=== PATIENT | male | born 1955 | race Caucasian/White ===

== ENCOUNTER 2017-06-01 11:35 | Inpatient (IN) | payer MEDICAID ==
[~2017-06-01] VITALS: Ht 180.3 cm; Wt 93.0 kg
[~2017-06-01 11:35] MED LIST: BACI3.5O2 LEFTEYE; NO HOME MEDS; PRED20TA PO
[2017-06-01] MEDS ORDERED: Permethrin 1% 59ml topical rinse TP ONE ×2 (14:25→17:10)
[2017-06-01] MEDS ORDERED: Permethrin Cream 60gm TP ONE ×2 (14:25→17:10)
[2017-06-01] MEDS ORDERED: Ivermectin 3mg tablet PO STA ×2 (14:33→14:41)
[2017-06-01 14:49] LABS: BASOPHILS % (AUTO) 0.1 % (0-1); EOSINOPHILS # (AUTO) 0.1 X10'3 (0-0.9); EOSINOPHILS % (AUTO) 0.4 % (0-6); HEMATOCRIT 41.4 % (42.0-52.0); HEMOGLOBIN 13.9 g/dl (14.0-17.9); LYMPHOCYTES % (AUTO) 6.6 % (21-51); MEAN CORPUSCULAR HEMOGLOBIN 30.8 PG (27.0-31.0); MEAN CORPUSCULAR HGB CONC 33.5 % (33.0-36.5); MEAN CORPUSCULAR VOLUME 91.9 FL (78-98); MEAN PLATELET VOLUME 8.4 FL (7.4-10.4); MONOCYTES # (AUTO) 1.1 X10'3 (0-0.9); MONOCYTES % (AUTO) 7.3 % (2-12); NEUTROPHILS # (AUTO) 13.5 X10'3 (1.8-7.7); NEUTROPHILS % (AUTO) 85.6 % (42-75); PLATELET COUNT 236 X10'3 (140-440); RED CELL DISTRIBUTION WIDTH 14.2 % (11.5-14.5); WHITE BLOOD COUNT 15.7 X10'3 (4.5-11.0)
[2017-06-01 15:02] LABS: INR 1.1 INR; PARTIAL THROMBOPLASTIN TIME 34 SECONDS (22-32)
[2017-06-01 15:08] LABS: ALANINE AMINOTRANSFERASE 58 U/L (12-78); ALBUMIN 3.1 G/DL (3.4-5.0); ALBUMIN/GLOBULIN RATIO 0.6 (1.1-1.5); ALKALINE PHOSPHATASE 77 IU/L (46-116); ANION GAP 9 (8-16); ASPARTATE AMINO TRANSFERASE 60 U/L (10-37); BILIRUBIN,TOTAL 0.9 MG/DL (0.1-1.0); BLOOD UREA NITROGEN 28 MG/DL (7-18); CALCIUM 8.9 MG/DL (8.5-10.1); CHLORIDE 98 MMOL/L (99-107); GLUCOSE 112 MG/DL (70-104); POTASSIUM 3.9 MMOL/L (3.5-5.1); SODIUM 134 MMOL/L (135-145); TOTAL CARBON DIOXIDE 26.6 MMOL/L (24-32); TOTAL PROTEIN 8.1 G/DL (6.4-8.2); eGFR 51 ML/MIN
[2017-06-01] MEDS ORDERED: CefTRIAXone 2gm/D5W 50ml ADVTG 50 ML IV ONE (16:05)
[2017-06-01] MEDS ORDERED: metoclopramide 5 mg/ml inj IV PRN (16:35)
[2017-06-01] MEDS ORDERED: diphenhydrAMINE 50 mg/ml inj IV PRN (16:35)
[2017-06-01] MEDS ORDERED: acetaminophen 325mg tablet PO PRN (16:35)
[2017-06-01] MEDS ORDERED: ondansetron/PF 4mg/2ml inj IV PRN (16:35)
[2017-06-01] MEDS ORDERED: HYDROcodone/acetaminophen 10/325mg tab PO PRN (16:35)
[2017-06-01] MEDS ORDERED: mag hydrox/Alum hydrox/simeth 30ml oral suspension PO PRN (16:35)
[2017-06-01] MEDS ORDERED: acetaminophen 650mg rectal suppository RC PRN (16:35)
[2017-06-01] MEDS ORDERED: HYDROcodone/acetaminophen 5mg/325mg tablet PO PRN (16:35)
[2017-06-01] MEDS ORDERED: magnesium hydroxide 30ml (MOM) UD suspension PO PRN (16:35)
[2017-06-01] MEDS ORDERED: diphenhydrAMINE 25mg capsule PO PRN (16:35)
[2017-06-01] MEDS ORDERED: UNABLE TO OBTAIN (16:50)
[2017-06-01] MEDS: normal saline 1000ml 1,000 ML IV SCH (16:58)
[2017-06-01] MEDS ORDERED: piperacillin/tazo 3.375gm/50ml 50 ML IV SCH (17:16)
[2017-06-01 18:13] LABS: MAGNESIUM 2.2 MG/DL (1.5-2.4)
[2017-06-01 20:00] VITALS: BP 125/78
[2017-06-01] MEDS ORDERED: vancomycin/NS 1 GM ADD-VANTAGE 250 ML IV SCH (20:00)
[2017-06-01] MEDS: docusate sod 100mg capsule PO SCH (20:00)
[2017-06-01] MEDS ORDERED: temazepam 15mg capsule PO PRN (21:00)
[2017-06-02] VITALS: BP 95/58
[2017-06-02] MEDS: normal saline 1000ml 1,000 ML IV SCH ×3 (02:32→19:42)
[2017-06-02] MEDS ORDERED: vancomycin inj 1,250 MG in normal saline 250ml IV soln 250 ML IV SCH (04:00)
[2017-06-02] MEDS ORDERED: piperacillin/tazo 3.375gm/50ml 50 ML IV SCH (05:00)
[2017-06-02 06:07] LABS: BASOPHILS % (AUTO) 0.1 % (0-1); EOSINOPHILS # (AUTO) 0.1 X10'3 (0-0.9); EOSINOPHILS % (AUTO) 0.7 % (0-6); HEMATOCRIT 34.4 % (42.0-52.0); HEMOGLOBIN 11.8 g/dl (14.0-17.9); LYMPHOCYTES # (AUTO) 1.3 X10'3 (1.1-4.8); LYMPHOCYTES % (AUTO) 7.3 % (21-51); MEAN CORPUSCULAR HEMOGLOBIN 31.4 PG (27.0-31.0); MEAN CORPUSCULAR HGB CONC 34.2 % (33.0-36.5); MEAN CORPUSCULAR VOLUME 91.9 FL (78-98); MONOCYTES % (AUTO) 10.9 % (2-12); NEUTROPHILS # (AUTO) 14.8 X10'3 (1.8-7.7); PLATELET COUNT 207 X10'3 (140-440); RED BLOOD COUNT 3.74 X10'6 (4.70-6.10); RED CELL DISTRIBUTION WIDTH 14.3 % (11.5-14.5); WHITE BLOOD COUNT 18.3 X10'3 (4.5-11.0)
[2017-06-02 06:09] LABS: ALANINE AMINOTRANSFERASE 59 U/L (12-78); ALBUMIN 2.3 G/DL (3.4-5.0); ALBUMIN/GLOBULIN RATIO 0.5 (1.1-1.5); ALKALINE PHOSPHATASE 73 IU/L (46-116); ANION GAP 8 (8-16); ASPARTATE AMINO TRANSFERASE 60 U/L (10-37); BILIRUBIN,TOTAL 0.8 MG/DL (0.1-1.0); BLOOD UREA NITROGEN 22 MG/DL (7-18); BUN/CREATININE RATIO 21.6 (5.4-32.0); CALCIUM 8.3 MG/DL (8.5-10.1); CHLORIDE 103 MMOL/L (99-107); CREATININE 1.02 MG/DL (0.60-1.10); GLUCOSE 109 MG/DL (70-104); POTASSIUM 3.6 MMOL/L (3.5-5.1); SODIUM 134 MMOL/L (135-145); TOTAL PROTEIN 6.6 G/DL (6.4-8.2); eGFR 74 ML/MIN
[2017-06-02 07:00] VITALS: BP 98/72
[2017-06-02] MEDS: docusate sod 100mg capsule PO SCH ×2 (07:18→19:41)
[2017-06-02] MEDS: pantoprazole 40mg Tablet.DR PO SCH (07:18)
[2017-06-02] MEDS: heparin, porcine 5000 units/ml vial SQ SCH ×3 (07:18→15:39)
[2017-06-02] MEDS ORDERED: pneumococcal 23-VAL P-sac vacc 25 mcg/0.5ml vial IMVAC ONE (09:00)
[2017-06-02 11:34] VITALS: BP 137/69
[2017-06-02] MEDS: vancomycin/NS 1 GM ADD-VANTAGE 250 ML IV SCH ×2 (12:24→19:41)
[2017-06-02] MEDS: piperacillin/tazo 3.375gm/50ml 50 ML IV SCH ×2 (15:28→23:53)
[2017-06-02] MEDS: mineral oil/petrolatum, white cream 113gm jar TP SCH (19:41)
[2017-06-02] MEDS: nicotine 21mg patch - 24 hr TD SCH (19:41)
[2017-06-02 20:00] VITALS: BP 128/68
[2017-06-03] VITALS: BP 110/65
[2017-06-03] MEDS ORDERED: VANCOMYCIN LEVEL IV ONE (03:30)
[2017-06-03] MEDS: vancomycin/NS 1 GM ADD-VANTAGE 250 ML IV SCH ×3 (04:15→21:05)
[2017-06-03 06:06] LABS: BASOPHILS % (AUTO) 0.2 % (0-1); EOSINOPHILS # (AUTO) 0.5 X10'3 (0-0.9); EOSINOPHILS % (AUTO) 3.1 % (0-6); HEMATOCRIT 33.1 % (42.0-52.0); HEMOGLOBIN 11.4 g/dl (14.0-17.9); LYMPHOCYTES # (AUTO) 1.7 X10'3 (1.1-4.8); LYMPHOCYTES % (AUTO) 11.3 % (21-51); MEAN CORPUSCULAR HEMOGLOBIN 31.4 PG (27.0-31.0); MEAN CORPUSCULAR HGB CONC 34.4 % (33.0-36.5); MEAN CORPUSCULAR VOLUME 91.4 FL (78-98); MEAN PLATELET VOLUME 7.9 FL (7.4-10.4); MONOCYTES # (AUTO) 1.1 X10'3 (0-0.9); MONOCYTES % (AUTO) 7.2 % (2-12); NEUTROPHILS # (AUTO) 11.7 X10'3 (1.8-7.7); NEUTROPHILS % (AUTO) 78.2 % (42-75); PLATELET COUNT 259 X10'3 (140-440); RED BLOOD COUNT 3.62 X10'6 (4.70-6.10); RED CELL DISTRIBUTION WIDTH 14.1 % (11.5-14.5); WHITE BLOOD COUNT 14.9 X10'3 (4.5-11.0)
[2017-06-03 06:22] LABS: ALANINE AMINOTRANSFERASE 61 U/L (12-78); ALBUMIN 2.1 G/DL (3.4-5.0); ALBUMIN/GLOBULIN RATIO 0.5 (1.1-1.5); ALKALINE PHOSPHATASE 83 IU/L (46-116); ANION GAP 9 (8-16); ASPARTATE AMINO TRANSFERASE 57 U/L (10-37); BILIRUBIN,TOTAL 0.6 MG/DL (0.1-1.0); BLOOD UREA NITROGEN 17 MG/DL (7-18); BUN/CREATININE RATIO 18.5 (5.4-32.0); CALCIUM 8.3 MG/DL (8.5-10.1); CHLORIDE 105 MMOL/L (99-107); CREATININE 0.92 MG/DL (0.60-1.10); GLUCOSE 93 MG/DL (70-104); POTASSIUM 3.6 MMOL/L (3.5-5.1); SODIUM 138 MMOL/L (135-145); TOTAL PROTEIN 6.5 G/DL (6.4-8.2); eGFR 83 ML/MIN
[2017-06-03 07:20] VITALS: BP 130/68
[2017-06-03] MEDS: docusate sod 100mg capsule PO SCH ×2 (07:35→19:32)
[2017-06-03] MEDS: LACTOBACILLUS RHAMNOSUS GG 15 billion unit sprinkle caps PO SCH (07:36)
[2017-06-03] MEDS: mineral oil/petrolatum, white cream 113gm jar TP SCH ×2 (07:36→19:33)
[2017-06-03] MEDS: nicotine 21mg patch - 24 hr TD SCH (07:36)
[2017-06-03] MEDS: piperacillin/tazo 3.375gm/50ml 50 ML IV SCH ×2 (07:38→15:04)
[2017-06-03] MEDS: heparin, porcine 5000 units/ml vial SQ SCH ×3 (07:40→16:24)
[2017-06-03] MEDS: pantoprazole 40mg Tablet.DR PO SCH (07:41)
[2017-06-03] MEDS: normal saline 1000ml 1,000 ML IV SCH ×2 (08:32→19:32)
[2017-06-03 11:08] VITALS: BP 134/66
[2017-06-03] MEDS ORDERED: VANCOMYCIN LEVEL IV NR (11:30)
[2017-06-03] MEDS: CefTRIAXone 2gm/D5W 50ml ADVTG 50 ML IV SCH (19:32)
[2017-06-03 20:00] VITALS: BP 132/68
[2017-06-04] VITALS: BP 120/76
[2017-06-04] MEDS: heparin, porcine 5000 units/ml vial SQ SCH ×4 (01:27→23:42)
[2017-06-04] MEDS: normal saline 1000ml 1,000 ML IV SCH ×2 (04:32→15:25)
[2017-06-04 04:38] LABS: BASOPHILS # (AUTO) 0.1 X10'3 (0-0.2); BASOPHILS % (AUTO) 0.8 % (0-1); EOSINOPHILS # (AUTO) 0.6 X10'3 (0-0.9); EOSINOPHILS % (AUTO) 4.8 % (0-6); HEMATOCRIT 32.1 % (42.0-52.0); HEMOGLOBIN 11.1 g/dl (14.0-17.9); LYMPHOCYTES # (AUTO) 1.7 X10'3 (1.1-4.8); LYMPHOCYTES % (AUTO) 13.9 % (21-51); MEAN CORPUSCULAR HEMOGLOBIN 31.3 PG (27.0-31.0); MEAN CORPUSCULAR HGB CONC 34.5 % (33.0-36.5); MEAN CORPUSCULAR VOLUME 90.9 FL (78-98); MEAN PLATELET VOLUME 7.5 FL (7.4-10.4); MONOCYTES # (AUTO) 0.7 X10'3 (0-0.9); NEUTROPHILS # (AUTO) 9.2 X10'3 (1.8-7.7); NEUTROPHILS % (AUTO) 74.5 % (42-75); PLATELET COUNT 328 X10'3 (140-440); RED BLOOD COUNT 3.53 X10'6 (4.70-6.10); RED CELL DISTRIBUTION WIDTH 14.1 % (11.5-14.5); WHITE BLOOD COUNT 12.4 X10'3 (4.5-11.0)
[2017-06-04] MEDS: vancomycin/NS 1 GM ADD-VANTAGE 250 ML IV SCH ×4 (04:40→23:42)
[2017-06-04 04:55] LABS: ALANINE AMINOTRANSFERASE 78 U/L (12-78); ALBUMIN/GLOBULIN RATIO 0.5 (1.1-1.5); ALKALINE PHOSPHATASE 83 IU/L (46-116); ANION GAP 8 (8-16); ASPARTATE AMINO TRANSFERASE 68 U/L (10-37); BILIRUBIN,TOTAL 0.4 MG/DL (0.1-1.0); BLOOD UREA NITROGEN 10 MG/DL (7-18); BUN/CREATININE RATIO 12.3 (5.4-32.0); CALCIUM 8.6 MG/DL (8.5-10.1); CHLORIDE 106 MMOL/L (99-107); CREATININE 0.81 MG/DL (0.60-1.10); GLUCOSE 101 MG/DL (70-104); POTASSIUM 3.6 MMOL/L (3.5-5.1); SODIUM 139 MMOL/L (135-145); TOTAL CARBON DIOXIDE 25.2 MMOL/L (24-32); TOTAL PROTEIN 6.4 G/DL (6.4-8.2); eGFR > 90 ML/MIN
[2017-06-04 07:25] VITALS: BP 138/77
[2017-06-04] MEDS: LACTOBACILLUS RHAMNOSUS GG 15 billion unit sprinkle caps PO SCH (07:47)
[2017-06-04] MEDS: pantoprazole 40mg Tablet.DR PO SCH (07:47)
[2017-06-04] MEDS: CefTRIAXone 2gm/D5W 50ml ADVTG 50 ML IV SCH (07:47)
[2017-06-04] MEDS: docusate sod 100mg capsule PO SCH ×2 (07:48→20:00)
[2017-06-04] MEDS: mineral oil/petrolatum, white cream 113gm jar TP SCH ×2 (07:49→20:00)
[2017-06-04] MEDS: nicotine 21mg patch - 24 hr TD SCH (07:49)
[2017-06-04 12:23] VITALS: BP 132/74
[2017-06-04] MEDS ORDERED: DOXY-257 PO (12:32)
[2017-06-04] MEDS ORDERED: AMOX-580 PO (12:32)
[2017-06-04 18:45] VITALS: BP 115/75
[2017-06-04 23:00] VITALS: BP 125/75
[2017-06-05] MEDS: normal saline 1000ml 1,000 ML IV SCH ×2 (00:32→13:22)
[2017-06-05 06:06] LABS: BASOPHILS # (AUTO) 0.1 X10'3 (0-0.2); BASOPHILS % (AUTO) 0.5 % (0-1); EOSINOPHILS # (AUTO) 0.7 X10'3 (0-0.9); EOSINOPHILS % (AUTO) 5.5 % (0-6); HEMATOCRIT 32.2 % (42.0-52.0); HEMOGLOBIN 10.8 g/dl (14.0-17.9); LYMPHOCYTES # (AUTO) 2.1 X10'3 (1.1-4.8); LYMPHOCYTES % (AUTO) 17.4 % (21-51); MEAN CORPUSCULAR HEMOGLOBIN 30.8 PG (27.0-31.0); MEAN CORPUSCULAR HGB CONC 33.6 % (33.0-36.5); MEAN CORPUSCULAR VOLUME 91.7 FL (78-98); MEAN PLATELET VOLUME 7.5 FL (7.4-10.4); MONOCYTES # (AUTO) 0.9 X10'3 (0-0.9); MONOCYTES % (AUTO) 7.3 % (2-12); NEUTROPHILS # (AUTO) 8.3 X10'3 (1.8-7.7); NEUTROPHILS % (AUTO) 69.3 % (42-75); PLATELET COUNT 428 X10'3 (140-440); RED BLOOD COUNT 3.51 X10'6 (4.70-6.10); RED CELL DISTRIBUTION WIDTH 13.8 % (11.5-14.5)
[2017-06-05 06:41] LABS: ALANINE AMINOTRANSFERASE 82 U/L (12-78); ALBUMIN/GLOBULIN RATIO 0.5 (1.1-1.5); ALKALINE PHOSPHATASE 83 IU/L (46-116); ANION GAP 5 (8-16); ASPARTATE AMINO TRANSFERASE 65 U/L (10-37); BILIRUBIN,TOTAL 0.5 MG/DL (0.1-1.0); BLOOD UREA NITROGEN 8 MG/DL (7-18); BUN/CREATININE RATIO 8.8 (5.4-32.0); CALCIUM 8.5 MG/DL (8.5-10.1); CHLORIDE 105 MMOL/L (99-107); CREATININE 0.91 MG/DL (0.60-1.10); GLUCOSE 105 MG/DL (70-104); POTASSIUM 3.8 MMOL/L (3.5-5.1); SODIUM 140 MMOL/L (135-145); TOTAL CARBON DIOXIDE 29.8 MMOL/L (24-32); TOTAL PROTEIN 6.3 G/DL (6.4-8.2); eGFR 84 ML/MIN
[2017-06-05] MEDS: pantoprazole 40mg Tablet.DR PO SCH (07:30)
[2017-06-05 08:00] VITALS: BP 134/79
[2017-06-05] MEDS: nicotine 21mg patch - 24 hr TD SCH (08:00)
[2017-06-05] MEDS: vancomycin/NS 1 GM ADD-VANTAGE 250 ML IV SCH ×2 (08:00→16:23)
[2017-06-05] MEDS: docusate sod 100mg capsule PO SCH ×2 (08:00→20:00)
[2017-06-05] MEDS: heparin, porcine 5000 units/ml vial SQ SCH ×2 (08:00→16:00)
[2017-06-05] MEDS: LACTOBACILLUS RHAMNOSUS GG 15 billion unit sprinkle caps PO SCH (08:31)
[2017-06-05] MEDS: CefTRIAXone 2gm/D5W 50ml ADVTG 50 ML IV SCH (08:32)
[2017-06-05] MEDS: mineral oil/petrolatum, white cream 113gm jar TP SCH ×2 (08:40→21:01)
[2017-06-05 12:00] VITALS: BP 137/74
[2017-06-05] MEDS: doxycycline hyclate 100mg tablet.DR PO SCH (18:02)
[2017-06-05] MEDS: amox tr/potassium clavulanate 875/125mg TAB PO SCH (18:02)
[2017-06-05 19:20] VITALS: BP 139/73
[2017-06-05 23:00] VITALS: BP 139/74
[2017-06-06 06:30] LABS: BASOPHILS # (AUTO) 0.1 X10'3 (0-0.2); BASOPHILS % (AUTO) 0.6 % (0-1); EOSINOPHILS # (AUTO) 0.7 X10'3 (0-0.9); EOSINOPHILS % (AUTO) 5.4 % (0-6); HEMATOCRIT 33.8 % (42.0-52.0); HEMOGLOBIN 11.4 g/dl (14.0-17.9); LYMPHOCYTES # (AUTO) 1.7 X10'3 (1.1-4.8); LYMPHOCYTES % (AUTO) 13.5 % (21-51); MEAN CORPUSCULAR HGB CONC 33.8 % (33.0-36.5); MEAN CORPUSCULAR VOLUME 91.8 FL (78-98); MEAN PLATELET VOLUME 7.4 FL (7.4-10.4); MONOCYTES # (AUTO) 0.7 X10'3 (0-0.9); MONOCYTES % (AUTO) 5.8 % (2-12); NEUTROPHILS # (AUTO) 9.4 X10'3 (1.8-7.7); NEUTROPHILS % (AUTO) 74.7 % (42-75); PLATELET COUNT 510 X10'3 (140-440); RED BLOOD COUNT 3.68 X10'6 (4.70-6.10); RED CELL DISTRIBUTION WIDTH 13.7 % (11.5-14.5); WHITE BLOOD COUNT 12.6 X10'3 (4.5-11.0)
[2017-06-06 06:49] LABS: ALANINE AMINOTRANSFERASE 105 U/L (12-78); ALBUMIN/GLOBULIN RATIO 0.4 (1.1-1.5); ALKALINE PHOSPHATASE 91 IU/L (46-116); ANION GAP 6 (8-16); ASPARTATE AMINO TRANSFERASE 85 U/L (10-37); BILIRUBIN,TOTAL 0.3 MG/DL (0.1-1.0); BLOOD UREA NITROGEN 8 MG/DL (7-18); BUN/CREATININE RATIO 9.5 (5.4-32.0); CALCIUM 8.7 MG/DL (8.5-10.1); CHLORIDE 106 MMOL/L (99-107); CREATININE 0.84 MG/DL (0.60-1.10); GLUCOSE 101 MG/DL (70-104); POTASSIUM 3.9 MMOL/L (3.5-5.1); SODIUM 140 MMOL/L (135-145); TOTAL CARBON DIOXIDE 28.5 MMOL/L (24-32); TOTAL PROTEIN 6.5 G/DL (6.4-8.2); eGFR > 90 ML/MIN
[2017-06-06 07:18] VITALS: BP 123/68
[2017-06-06] MEDS: pantoprazole 40mg Tablet.DR PO SCH (07:30)
[2017-06-06] MEDS: nicotine 21mg patch - 24 hr TD SCH (08:00)
[2017-06-06] MEDS: heparin, porcine 5000 units/ml vial SQ SCH ×2 (08:00)
[2017-06-06] MEDS: docusate sod 100mg capsule PO SCH (08:00)
[2017-06-06] MEDS: doxycycline hyclate 100mg tablet.DR PO SCH (08:34)
[2017-06-06] MEDS: mineral oil/petrolatum, white cream 113gm jar TP SCH (08:34)
[2017-06-06] MEDS: amox tr/potassium clavulanate 875/125mg TAB PO SCH (08:35)
[2017-06-06] MEDS: LACTOBACILLUS RHAMNOSUS GG 15 billion unit sprinkle caps PO SCH (08:35)
== END 2017-06-06 14:15 | disposition home or self-care (01) | DRG 720 ==
LOC: ER 11:36 → ED HOLD 16:36 → CMPBEDREQ 19:53 → MED 3N 20:49
PROVIDERS: ADMIT Family Medicine; ATTEND Family Medicine
DX: A41.9 Sepsis, unspecified organism (principal); N17.0 Acute kidney failure with tubular necrosis; E87.1 Hypo-osmolality and hyponatremia; F20.9 Schizophrenia, unspecified; B85.1 Pediculosis due to Pediculus humanus corporis; L03.115 Cellulitis of right lower limb; E86.0 Dehydration; L23.9 Allergic contact dermatitis, unspecified cause; F17.210 Nicotine dependence, cigarettes, uncomplicated; Z60.2 Problems related to living alone; Z59.0 Homelessness; Z79.899 Other long term (current) drug therapy; Z79.01 Long term (current) use of anticoagulants; Z56.0 Unemployment, unspecified
CPT/HCPCS: 36415; 80053; 80202; 83605; 83735; 83880; 85025; 85610; 85730; 87040; 87070; 93971; 99285; A6212; A6449; J0696; J1644; J2543; J3370; J7030

== ENCOUNTER 2019-06-18 08:23 | Emergency (ER) | payer MEDICAID, MEDICARE ==
[~2019-06-18] VITALS: Ht 180.3 cm; Wt 100.0 kg
[~2019-06-18 08:23] MED LIST changes: -BACI3.5O2 LEFTEYE; +DOXY-327 PO; -NO HOME MEDS; -PRED20TA PO
[2019-06-18] MEDS ORDERED: ondansetron 4mg rapidly disintigrating tab PO ONE (09:05)
[2019-06-18] MEDS ORDERED: HYDROcodone/acetaminophen 5mg/325mg tablet PO ONE (09:05)
[2019-06-18] MEDS ORDERED: IBUP-1984 PO (09:13)
[2019-06-18 09:23] VITALS: BP 127/72
--- NOTE | 2019-06-18 10:08 | NUR ---
Pt asleep. Awakened to dc.
== END 2019-06-18 10:13 | disposition home or self-care (01) ==
LOC: ER 08:24
DX: M25.551 Pain in right hip (principal); G89.29 Other chronic pain; Z59.0 Homelessness; Z56.0 Unemployment, unspecified
CPT/HCPCS: 99284

== ENCOUNTER 2019-07-02 23:00 | Emergency (ER) | payer MEDICARE ==
[~2019-07-02] VITALS: Ht 172.7 cm; Wt 81.8 kg
[2019-07-03] MEDS ORDERED: acetaminophen 325mg tablet PO ONE (01:05)
[2019-07-03 01:50] VITALS: BP 109/79
[2019-07-04] MEDS ORDERED: NAPR-56 PO (02:05)
== END 2019-07-03 01:59 | disposition home or self-care (01) ==
LOC: ER 23:01
DX: G89.29 Other chronic pain (principal); M25.552 Pain in left hip; Z59.0 Homelessness; Z56.0 Unemployment, unspecified
CPT/HCPCS: 99282

== ENCOUNTER 2019-07-03 23:42 | Emergency (ER) | payer MEDICARE ==
[~2019-07-03] VITALS: Ht 180.3 cm; Wt 97.7 kg
[2019-07-03 23:48] VITALS: BP 136/100
[2019-07-04] MEDS ORDERED: ketorolac trometh. 30mg/ml inj. IM ONE (01:15)
[2019-07-04] MEDS ORDERED: NAPR-56 PO (02:05)
== END 2019-07-04 02:41 | disposition home or self-care (01) ==
LOC: ER 23:43
DX: M25.551 Pain in right hip (principal); G89.29 Other chronic pain; F20.9 Schizophrenia, unspecified; Z98.890 Other specified postprocedural states; Z60.2 Problems related to living alone; Z59.0 Homelessness; Z56.0 Unemployment, unspecified; Z79.899 Other long term (current) drug therapy
CPT/HCPCS: 73502; 96372; 99283; J1885

== ENCOUNTER 2019-07-16 02:50 | Emergency (ER) | payer MEDICARE ==
[~2019-07-16] VITALS: Ht 177.8 cm; Wt 63.6 kg
[~2019-07-16 02:50] MED LIST changes: +NAPR-56 PO
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
--- NOTE | 2019-07-16 03:02 | NUR ---
PT WAS PROMPTLY ESCORTED OUT OF ED BEFORE ANY ICT SUPPORT ENGINEER COULD OCCUR. PT WAS TOO AGGRESSIVE AND UNCOOPERATIVE FOR SAFE ICT SUPPORT ENGINEER.
[2019-07-16] MEDS ORDERED: NO HOME MEDS (13:45)
[2019-07-16] MEDS ORDERED: SULF1TAB49 PO (17:34)
[2019-07-18] MEDS ORDERED: NO HOME MEDS (16:06)
[2019-07-20] MEDS ORDERED: OLAN2.5T3 PO (11:16)
[2019-07-20] MEDS ORDERED: CEPH500C5 PO (11:16)
== END 2019-07-16 03:04 | disposition home or self-care (01) ==
LOC: ER 02:51
DX: G89.29 Other chronic pain (principal); F20.9 Schizophrenia, unspecified; F17.210 Nicotine dependence, cigarettes, uncomplicated; Z76.5 Malingerer [conscious simulation]; Z59.0 Homelessness; Z72.89 Other problems related to lifestyle; Z56.0 Unemployment, unspecified; Z79.899 Other long term (current) drug therapy
CPT/HCPCS: 99283

== ENCOUNTER 2019-07-16 06:30 | Inpatient (IN) | payer MEDICARE ==
[~2019-07-16] VITALS: Ht 180.3 cm; Wt 93.2 kg
[2019-07-16] MEDS ORDERED: CefTRIAXone 2gm/D5W 50ml 50 ML IV ONE (06:55)
[2019-07-16] MEDS ORDERED: vancomycin/NS 1 GM ADD-VANTAGE 250 ML IV ONE (06:55)
[2019-07-16 07:39] LABS: BASOPHILS # (AUTO) 0.1 X10'3 (0-0.2); BASOPHILS % (AUTO) 1.1 % (0-1); EOSINOPHILS # (AUTO) 0.2 X10'3 (0-0.9); EOSINOPHILS % (AUTO) 1.7 % (0-6); HEMATOCRIT 38.8 % (42.0-52.0); HEMOGLOBIN 12.9 g/dl (14.0-17.9); LYMPHOCYTES # (AUTO) 1.7 X10'3 (1.1-4.8); LYMPHOCYTES % (AUTO) 13.6 % (21-51); MEAN CORPUSCULAR HEMOGLOBIN 30.1 PG (27.0-31.0); MEAN CORPUSCULAR HGB CONC 33.2 g/dL (33.0-36.5); MEAN CORPUSCULAR VOLUME 90.6 FL (78-98); MEAN PLATELET VOLUME 6.6 FL (7.4-10.4); MONOCYTES # (AUTO) 0.6 X10'3 (0-0.9); MONOCYTES % (AUTO) 4.6 % (2-12); PLATELET COUNT 739 X10'3 (140-440); RED BLOOD COUNT 4.28 X10'6 (4.70-6.10); RED CELL DISTRIBUTION WIDTH 13.6 % (11.5-14.5); WHITE BLOOD COUNT 12.7 X10'3 (4.5-11.0)
[2019-07-16 07:46] LABS: PARTIAL THROMBOPLASTIN TIME 29 SECONDS (22-32)
[2019-07-16 07:58] LABS: ALANINE AMINOTRANSFERASE 70 U/L (12-78); ALBUMIN 3.2 G/DL (3.4-5.0); ALBUMIN/GLOBULIN RATIO 0.5 (1.1-1.5); ALKALINE PHOSPHATASE 69 IU/L (46-116); ANION GAP 9 (8-16); ASPARTATE AMINO TRANSFERASE 47 U/L (10-37); BILIRUBIN,TOTAL 0.3 MG/DL (0.1-1.0); BLOOD UREA NITROGEN 32 MG/DL (7-18); BUN/CREATININE RATIO 24.1 (5.4-32.0); CALCIUM 9.7 MG/DL (8.5-10.1); CHLORIDE 101 MMOL/L (99-107); CREATININE 1.33 MG/DL (0.60-1.10); GLUCOSE 90 MG/DL (70-104); MAGNESIUM 2.2 MG/DL (1.5-2.4); POTASSIUM 4.5 MMOL/L (3.5-5.1); SODIUM 136 MMOL/L (135-145); TOTAL CARBON DIOXIDE 26.5 MMOL/L (24-32); TOTAL PROTEIN 9.3 G/DL (6.4-8.2); eGFR 54 ML/MIN
[2019-07-16 08:07] LABS: C-REACTIVE PROTEIN 1.47 MG/DL (0.0-0.5); ETHANOL < 0.010 GM/DL (0.0-0.010)
[2019-07-16 11:47] LABS: URINE AMPHETAMINE SCREEN NEGATIVE (Neg); URINE BARBITUATE SCREEN NEGATIVE (Neg); URINE BENZODIAZEPINES SCREEN NEGATIVE (Neg); URINE CANNABINOID SCREEN POSITIVE (Neg); URINE COCAINE SCREEN NEGATIVE (Neg); URINE METHADONE SCREEN NEGATIVE (Neg); URINE OPIATE SCREEN POSITIVE (Neg); URINE PHENCYCLIDINE SCREEN NEGATIVE (Neg)
[2019-07-16 11:55] LABS: CLARITY,URINE CLEAR (Clear); COLOR,URINE YELLOW (Yellow); GLUCOSE, URINE NEGATIVE (Neg); KETONES,URINE NEGATIVE (Neg); LEUKOCYTE ESTERASE ,URINE NEGATIVE (Neg); NITRITES, URINE NEGATIVE (Neg); OCCULT BLOOD,URINE NEGATIVE (Neg); PH,URINE 5.5 (4.8-8.0); PROTEIN,URINE NEGATIVE (Neg); UROBILINOGEN,URINE 0.2 E.U/dL (0.2-1.0)
[2019-07-16 12:02] LABS: UA COLLECTION TYPE URINAL
[2019-07-16] MEDS ORDERED: normal saline 1000ml 1,000 ML IV SCH (12:32)
[2019-07-16] MEDS ORDERED: morphine 2 MG/ML inj. syringe IV PRN ×2 (12:35)
[2019-07-16] MEDS ORDERED: ondansetron/PF 4mg/2ml inj IV PRN (12:35)
[2019-07-16] MEDS ORDERED: acetaminophen 325mg tablet PO PRN (12:35)
[2019-07-16] MEDS ORDERED: mag hydrox/Alum hydrox/simeth 30ml oral suspension PO PRN (12:35)
[2019-07-16] MEDS ORDERED: magnesium hydroxide 30ml (MOM) UD suspension PO PRN (12:35)
[2019-07-16] MEDS ORDERED: NO HOME MEDS (13:45)
[2019-07-16 15:40] VITALS: BP 100/63
[2019-07-16] MEDS ORDERED: piperacillin/tazo 4.5gm/100ml 100 ML IV SCH (16:00)
--- NOTE | 2019-07-16 17:20 | NUR ---
PT. WAS YELLING AT ME AND PULLED OUT HIS IV AND TRIED TO HIT ME IN THE PROCESS. PT. STATED HE WILL LEAVE AMA, HOSPITALIST NOTIFED AND ER MD CLEARED HIM TO LEAVE AMA.
[2019-07-16] MEDS ORDERED: SULF1TAB49 PO (17:34)
[2019-07-16] MEDS ORDERED: VANCOmycin 1250MG/NS 250ml Bag 250 ML IV SCH (20:00)
[2019-07-16] MEDS ORDERED: heparin, porcine 5000 units/ml vial SQ SCH (20:00)
[2019-07-18] MEDS ORDERED: VANCOMYCIN LEVEL IV ONE (07:30)
[2019-07-18] MEDS ORDERED: NO HOME MEDS (16:06)
[2019-07-20] MEDS ORDERED: CEPH500C5 PO (11:16)
[2019-07-20] MEDS ORDERED: OLAN2.5T3 PO (11:16)
== END 2019-07-16 17:36 | disposition left against medical advice (07) | DRG 603 ==
LOC: ER 06:30 → ED HOLD 12:32
PROVIDERS: ADMIT Family Medicine; ATTEND Family Medicine
DX: L03.115 Cellulitis of right lower limb (principal); Z60.2 Problems related to living alone; F17.210 Nicotine dependence, cigarettes, uncomplicated; F12.10 Cannabis abuse, uncomplicated; F14.10 Cocaine abuse, uncomplicated; Z53.29 Procedure and treatment not carried out because of patient's decision for other reasons; F20.9 Schizophrenia, unspecified; G89.29 Other chronic pain; Z59.0 Homelessness
CPT/HCPCS: 36415; 71045; 80053; 80305; 80320; 81003; 83605; 83735; 84145; 85025; 85610; 85730; 86140; 87040; 93005; 93971; G0378; J0696; J2543; J3370; J7030

== ENCOUNTER 2019-07-16 23:14 | Emergency (ER) | payer MEDICARE ==
[~2019-07-16] VITALS: Ht 180.3 cm; Wt 93.0 kg
[~2019-07-16 23:14] MED LIST changes: +NO HOME MEDS; +SULF1TAB49 PO
--- NOTE | 2019-07-17 01:50 | NUR ---
Patient resting calmly on gurney
[2019-07-17 03:00] VITALS: BP 114/66
[2019-07-18] MEDS ORDERED: NO HOME MEDS (16:06)
[2019-07-20] MEDS ORDERED: CEPH500C5 PO (11:16)
[2019-07-20] MEDS ORDERED: OLAN2.5T3 PO (11:16)
== END 2019-07-17 02:50 | disposition home or self-care (01) ==
LOC: ER 23:15
DX: L03.115 Cellulitis of right lower limb (principal); G89.29 Other chronic pain; F20.9 Schizophrenia, unspecified; F12.90 Cannabis use, unspecified, uncomplicated; Z59.0 Homelessness; Z72.89 Other problems related to lifestyle; Z56.0 Unemployment, unspecified
CPT/HCPCS: 99284

== ENCOUNTER → 2019-07-21 | Emergency (ER) | payer MEDICARE, OTHER ==
[~2019-07-21] MED LIST changes: +CEPH500C5 PO; -DOXY-327 PO; -NAPR-56 PO; -NO HOME MEDS; +OLAN2.5T3 PO; -SULF1TAB49 PO
== END | disposition home or self-care (01) ==
LOC: ER 00:12
DX: L03.115 Cellulitis of right lower limb (principal); G89.29 Other chronic pain; F20.9 Schizophrenia, unspecified; F12.90 Cannabis use, unspecified, uncomplicated; Z72.89 Other problems related to lifestyle; Z56.0 Unemployment, unspecified; Z79.899 Other long term (current) drug therapy
CPT/HCPCS: 99283

== ENCOUNTER 2019-07-29 22:02 | Emergency (ER) | payer MEDICARE, OTHER ==
[~2019-07-29] VITALS: Ht 180.3 cm; Wt 97.0 kg
[2019-07-29 22:04] VITALS: BP 121/75
[2019-07-29] MEDS ORDERED: ketorolac trometh inj. 60 MG/2 ML VIAL IM ONE (22:50)
== END 2019-07-29 23:13 | disposition home or self-care (01) ==
LOC: ER 22:03
DX: M54.6 Pain in thoracic spine (principal); G89.29 Other chronic pain; F12.90 Cannabis use, unspecified, uncomplicated; F20.9 Schizophrenia, unspecified; Z72.89 Other problems related to lifestyle; Z56.0 Unemployment, unspecified; Z79.2 Long term (current) use of antibiotics; Z79.899 Other long term (current) drug therapy; Z60.2 Problems related to living alone
CPT/HCPCS: 96372; 99283; J1885

== ENCOUNTER 2019-07-31 15:23 | Emergency (ER) | payer MEDICARE ==
[~2019-07-31] VITALS: Ht 170.2 cm; Wt 68.0 kg
[2019-07-31 16:15] LABS: BASOPHILS % (AUTO) 0.6 % (0-1); EOSINOPHILS # (AUTO) 0.3 X10'3 (0-0.9); EOSINOPHILS % (AUTO) 4.4 % (0-6); HEMATOCRIT 26.8 % (42.0-52.0); HEMOGLOBIN 9.2 g/dl (14.0-17.9); LYMPHOCYTES # (AUTO) 1.6 X10'3 (1.1-4.8); LYMPHOCYTES % (AUTO) 26.3 % (21-51); MEAN CORPUSCULAR HEMOGLOBIN 30.9 PG (27.0-31.0); MEAN CORPUSCULAR HGB CONC 34.2 g/dL (33.0-36.5); MEAN CORPUSCULAR VOLUME 90.2 FL (78-98); MEAN PLATELET VOLUME 6.5 FL (7.4-10.4); MONOCYTES # (AUTO) 0.5 X10'3 (0-0.9); MONOCYTES % (AUTO) 7.8 % (2-12); NEUTROPHILS # (AUTO) 3.8 X10'3 (1.8-7.7); NEUTROPHILS % (AUTO) 60.9 % (42-75); PLATELET COUNT 369 X10'3 (140-440); RED BLOOD COUNT 2.97 X10'6 (4.70-6.10); RED CELL DISTRIBUTION WIDTH 14.2 % (11.5-14.5); WHITE BLOOD COUNT 6.2 X10'3 (4.5-11.0)
[2019-07-31 16:40] LABS: ALANINE AMINOTRANSFERASE 31 U/L (12-78); ALBUMIN 2.5 G/DL (3.4-5.0); ALBUMIN/GLOBULIN RATIO 0.7 (1.1-1.5); ALKALINE PHOSPHATASE 63 IU/L (46-116); ANION GAP 6 (8-16); ASPARTATE AMINO TRANSFERASE 43 U/L (10-37); BILIRUBIN,TOTAL 0.2 MG/DL (0.1-1.0); BLOOD UREA NITROGEN 8 MG/DL (7-18); BUN/CREATININE RATIO 9.9 (5.4-32.0); CALCIUM 7.8 MG/DL (8.5-10.1); CHLORIDE 102 MMOL/L (99-107); CREATININE 0.81 MG/DL (0.60-1.10); ETHANOL < 0.010 GM/DL (0.0-0.010); GLUCOSE 99 MG/DL (70-104); POTASSIUM 3.6 MMOL/L (3.5-5.1); SODIUM 134 MMOL/L (135-145); TOTAL CARBON DIOXIDE 26.3 MMOL/L (24-32); TOTAL PROTEIN 6.2 G/DL (6.4-8.2); eGFR > 90 ML/MIN
[2019-07-31] MEDS ORDERED: normal saline 1000ML IV soln IVB ONE (16:50)
[2019-07-31] MEDS ORDERED: thiamine 100mg/ml 2ml inj. IV ONE ×2 (17:30→17:50)
[2019-07-31] MEDS ORDERED: thiamine inj. 100 MG, MVI, adult No.4 with vit. K 10 ML in dextrose 5% water 500ml 489 ML IV STA ×3 (17:31)
[2019-07-31] MEDS ORDERED: [UNRECOGNIZED DRUG - REMARK] IV STA ×3 (17:47)
--- NOTE | 2019-07-31 17:48 | NUR ---
Called pharm re new orders for bananna bag will be ready in 15 min, will continue to monitor
[2019-07-31] MEDS ORDERED: DEXTROSE 5% IV ONE (17:55)
[2019-07-31] MEDS ORDERED: WATER IV ONE (17:55)
[2019-07-31] MEDS ORDERED: MAGNESIUM IV ONE (17:55)
[2019-07-31] MEDS ORDERED: MVI, adult No.4 with vit. K 10 ML in dextrose 5% water 500ml 490 ML IV ONE ×2 (17:55)
[2019-07-31] MEDS ORDERED: LACT10SO32 PO (22:42)
[2019-07-31 23:37] VITALS: BP 116/70
== END 2019-07-31 23:40 | disposition home or self-care (01) ==
LOC: ER 15:24
DX: R41.82 Altered mental status, unspecified (principal); M25.571 Pain in right ankle and joints of right foot; R60.9 Edema, unspecified; G89.29 Other chronic pain; W18.39XA Other fall on same level, initial encounter; Y93.89 Activity, other specified; Y92.89 Other specified places as the place of occurrence of the external cause; Y99.8 Other external cause status; F12.90 Cannabis use, unspecified, uncomplicated; F20.9 Schizophrenia, unspecified; Z72.89 Other problems related to lifestyle; Z60.2 Problems related to living alone; Z56.0 Unemployment, unspecified; Z79.2 Long term (current) use of antibiotics; Z79.899 Other long term (current) drug therapy; F17.210 Nicotine dependence, cigarettes, uncomplicated; F10.10 Alcohol abuse, uncomplicated
CPT/HCPCS: 36415; 70450; 73610; 80053; 80320; 82140; 83605; 85025; 85610; 87040; 93005; 96361; 96365; 96366; 96375; 99285; J3411; J3475; J7030; J7060

== ENCOUNTER 2019-08-07 16:20 | Emergency (ER) | payer MEDICARE ==
[~2019-08-07] VITALS: Ht 170.2 cm; Wt 80.0 kg
[~2019-08-07 16:20] MED LIST changes: +LACT10SO32 PO
[2019-08-07 16:37] VITALS: BP 152/78
--- NOTE | 2019-08-07 17:09 | NUR ---
PT SEEN AND DC'D BY PROVIDER,
== END 2019-08-07 17:11 | disposition home or self-care (01) ==
LOC: ER 16:20
DX: G89.29 Other chronic pain (principal); M79.641 Pain in right hand; M25.522 Pain in left elbow; F12.90 Cannabis use, unspecified, uncomplicated; F20.9 Schizophrenia, unspecified; Z72.89 Other problems related to lifestyle; Z56.0 Unemployment, unspecified; Z79.899 Other long term (current) drug therapy
CPT/HCPCS: 99281